=== PATIENT | female | born 1970 | race Caucasian/White ===

== ENCOUNTER 2023-09-02 07:29 | Outpatient (RCR) | payer BC, SELFPAY ==
[2023-09-02 14:20] VITALS: BP 109/68; PULSE 68; RESP 18; TEMP 36.8; O2SAT 96
--- NOTE | 2023-09-02 15:17 | PC.NURSE ---
Patient is here for prolastin infusion, education was provided. IV started in her left forearm with blood return. She denies any pain, signs, or symptoms of reaction. Patient tolerated well and denies any issues. She was discharged home.
== END 2023-09-02 16:00 | disposition home or self-care (01) ==
LOC: INF 07:29
PROVIDERS: Visit Provider Internal Medicine
DX: E88.01 Alpha-1-antitrypsin deficiency (principal)
CPT/HCPCS: 96365; J0256

== ENCOUNTER 2023-11-12 07:23 | Outpatient (RCR) | payer BC, SELFPAY ==
[2023-10-29 11:33] VITALS: BP 113/64; PULSE 68; RESP 18; TEMP 36.7; O2SAT 98
--- NOTE | 2023-10-29 11:55 | PC.NURSE ---
1125 Arrival ambulatory for prolastin infusion. Patient has been having infusion since 09/02, having first here at [facility], remaineder of them were done at home, patient developed a macular papular rashover arms, legs and trunk, scattered, had visit with PCP and pulmonology, who felt this wasnt from prolastin, but cautioned by having her return to infusion center.
[2023-10-29] MEDS: PROTEINASE INHIBITOR IV (12:08)
[2023-10-29] MEDS: ALPHA IV (12:08)
--- NOTE | 2023-10-29 12:37 | PC.NURSE ---
1135 infusion completed. tolerated well, no s/s of reaction, educated patient on s/s of reaction, and what to do to seek medical attention immediately. verbalizes understanding 1137 iv dc'd catheter intact. released ambulatory
[2023-11-05] MEDS: PROTEINASE INHIBITOR IV (11:51)
[2023-11-05] MEDS: ALPHA IV (11:51)
[2023-11-05 12:25] VITALS: BP 128/71; PULSE 67; RESP 16; TEMP 36.9; O2SAT 96
--- NOTE | 2023-11-05 12:28 | PC.NURSE ---
1130: Pt. to [facility] amb. for IV Prolastin. Weight obtained, phoned to pharmacy. Seated in recliner. VSS. #22 gauge IV initiated to right forearm on first attempt without difficulty. Flushes easily with good blood return. Pt. tolerated without c/o. 1151: IV Prolastin initiated at this time. Pt. denies needs. 1220: Prolastin completed without s&s of adverse reaction. IV d/c'd, pressure to site. 1228: Pt. d/c'd amb. to home.
[2023-11-12] MEDS: ALPHA IV (11:59)
[2023-11-12] MEDS: PROTEINASE INHIBITOR IV (11:59)
--- NOTE | 2023-11-12 12:11 | PC.NURSE ---
1159 IV prolastin initiated. Instructed to [facility] staff for any itching wheezing shortness of breath etc.
--- NOTE | 2023-11-12 12:17 | PC.NURSE ---
Patient has had no issues with any rashes hives or s/s of reaction for previous 2 infusions
== END 2023-11-18 23:59 | disposition home or self-care (01) ==
LOC: INF 07:23
PROVIDERS: Visit Provider Internal Medicine
DX: E88.01 Alpha-1-antitrypsin deficiency (principal)
CPT/HCPCS: 96365; J0256

== ENCOUNTER 2023-12-17 07:22 | Outpatient (RCR) | payer BC, SELFPAY ==
[2023-11-19 11:45] VITALS: BP 117/80; PULSE 66; RESP 18; TEMP 37; O2SAT 93
--- NOTE | 2023-11-19 11:47 | PC.NURSE ---
1130 Arrival ambulatory to chair 1, alert oriented. weight obtained 169.6 lbs, called to pharmacy 1135 #24 iv initiated rt wrist on 1st attempt, tolerated well.
[2023-11-19] MEDS: ALPHA IV (11:58)
[2023-11-19] MEDS: PROTEINASE INHIBITOR IV (11:58)
--- NOTE | 2023-11-19 12:51 | PC.NURSE ---
1215 Tolerates infusion without any problems. patient states rash has been clear for last 3-4 weeks.
[2023-11-26 11:59] VITALS: BP 135/65; PULSE 80; RESP 20; TEMP 36.8; O2SAT 98
[2023-11-26] MEDS: PROTEINASE INHIBITOR IV (12:03)
[2023-11-26] MEDS: ALPHA IV (12:03)
[2023-12-03] MEDS: PROTEINASE INHIBITOR IV (11:45)
[2023-12-03] MEDS: ALPHA IV (11:45)
[2023-12-03 11:47] VITALS: BP 146/84; PULSE 78; RESP 18; TEMP 37.2; O2SAT 96
--- NOTE | 2023-12-03 11:49 | PC.NURSE ---
1130 Arrival ambulatory, alert oriented. denies any complaints. IV initiated with #24 iv on 1st attempt, tolerated well.
--- NOTE | 2023-12-03 13:58 | PC.NURSE ---
1145 infusion initiated over 30 mins. 1200 tolerating infusion without any issues 1215 infusion completed. flushed line with normal saline. noticed patient itching rt arm iv in in doral aspect of rt wrist, inner aspect of rt forearm was sl reddened from itching, patient stated this does happen sometimes during or after infusion, she states she also has some itching on left thigh, patient stated during home infusions she had intense itching duringand after infusions, much worse than anything now. instructed if it gets any worse to go to the ER, lungs clear, denies any itching in mouth or ronny, no difficulty with breathing, when questioned further she states she has gotten this before when getting medication in our infusion center, but it was very mild like now and has never informed staff. IV dc'd catheter intact, no reddness at or immediately above IV site. 1230 no itching or rash at this time. released ambulatory.
[2023-12-09 12:55] VITALS: BP 115/76; PULSE 73; RESP 18; TEMP 36.7; O2SAT 97
--- NOTE | 2023-12-09 12:58 | PC.NURSE ---
1245 arrival ambulatory to chair 2. alert oriented, offers no complaints, states did have a little rash on lateral aspect of leg, but states its nearly gone. lungs clear throughout posteriorly.
[2023-12-09] MEDS: PROTEINASE INHIBITOR IV (13:15)
[2023-12-09] MEDS: ALPHA IV (13:15)
--- NOTE | 2023-12-09 13:45 | PC.NURSE ---
1345 tolerating infusion over 60 minutes, no itching according to patient, lungs clear.
[2023-12-17] MEDS: PROTEINASE INHIBITOR IV (12:28)
[2023-12-17] MEDS: ALPHA IV (12:28)
--- NOTE | 2023-12-17 13:43 | PC.NURSE ---
1225 Arrival ambulatory to chair 3,alert oriented, offers no complaines #24 iv initated rt wrist area on 1st attaempt, tolerated well. patient states she does continue to have some raised samira her upper thighs, this has been this wayall along, nothing new. 1305 tolerated infusion without any issues, denies itching or s/s of reaction. line flushed with NS, dc'd catheter intact site clear, cottonball secured with coban. released ambulatory
== END 2023-12-19 23:59 | disposition home or self-care (01) ==
LOC: INF 07:22
PROVIDERS: Visit Provider Internal Medicine
DX: E88.01 Alpha-1-antitrypsin deficiency (principal)
CPT/HCPCS: 96365; J0256

== ENCOUNTER 2024-01-14 07:34 | Outpatient (RCR) | payer BC, SELFPAY ==
[2023-12-23 11:45] VITALS: BP 120/62; PULSE 68; TEMP 36.7; O2SAT 96
--- NOTE | 2023-12-23 11:56 | PC.NURSE ---
1135: Pt. to [facility] amb. Weight obtained. Seated in recliner. VSS. IV started to right ac on first attempt per this RN. Flushes easily without edema or c/o pain. Pt. tolerated without c/o.
[2023-12-23] MEDS: ALPHA IV (12:06)
[2023-12-23] MEDS: PROTEINASE INHIBITOR IV (12:06)
--- NOTE | 2023-12-23 12:42 | PC.NURSE ---
1206: Prolastin infusion initiated. Given water and warm blanket 1235: Prolastin completed without s&s of adverse reaction. IV d/c'd , pressure to site. D/c'd amb. to home.
[2023-12-31] MEDS: PROTEINASE INHIBITOR IV (11:50)
[2023-12-31] MEDS: ALPHA IV (11:50)
[2023-12-31 12:15] VITALS: BP 108/76; PULSE 83; TEMP 36.3; O2SAT 96
--- NOTE | 2023-12-31 13:25 | PC.NURSE ---
1120 arrival ambulatory to chair 2, alert oriented, offers no complaints. 1130 IV initiated per Danika RN RACF#[id number]. Patient tolerated well. patient states still has rash on legs and posterior arms, Primary Care has referred her to dermatology for evaluation. 1145 IV Prolatin initiated as ordered. 1215 Infusion completed. IV dc'd catheter intact. site clear. released ambulatory
[2024-01-07] MEDS: PROTEINASE INHIBITOR IV (11:54)
[2024-01-07] MEDS: ALPHA IV (11:54)
[2024-01-07 12:05] VITALS: BP 114/61; PULSE 53; TEMP 36.7; O2SAT 93
[2024-01-14 11:36] VITALS: BP 142/89; PULSE 69; TEMP 36.4; O2SAT 94
--- NOTE | 2024-01-14 11:41 | PC.NURSE ---
1130 Arrival ambulatory to chair 1. alert oriented, @24 iv initiated rt forearm, per rrnadia rn. tolerated well.
[2024-01-14] MEDS: PROTEINASE INHIBITOR IV (12:06)
[2024-01-14] MEDS: ALPHA IV (12:06)
== END 2024-01-18 23:59 | disposition home or self-care (01) ==
LOC: INF 07:34
PROVIDERS: Visit Provider Internal Medicine
DX: E88.01 Alpha-1-antitrypsin deficiency (principal)
CPT/HCPCS: 96365; J0256

== ENCOUNTER 2024-02-18 07:27 | Outpatient (RCR) | payer BC, OTHER, SELFPAY ==
[2024-01-21] MEDS: ALPHA IV (11:52)
[2024-01-21] MEDS: PROTEINASE INHIBITOR IV (11:52)
[2024-01-21 12:45] VITALS: BP 112/68; PULSE 585; TEMP 36.5; O2SAT 92
[2024-01-28 11:38] VITALS: BP 104/62; PULSE 65; TEMP 37.1; O2SAT 98
[2024-01-28] MEDS: PROTEINASE INHIBITOR IV (11:49)
[2024-01-28] MEDS: ALPHA IV (11:49)
[2024-02-04 11:42] VITALS: BP 131/74; PULSE 73; TEMP 36.2; O2SAT 95
--- NOTE | 2024-02-04 11:47 | PC.NURSE ---
1135 Arrival ambulatory, weight obtained. pharmacy notified. Alert and oriented. offers no complaints. IV initiated rt wrist, tolerated well.
[2024-02-04] MEDS: ALPHA IV (12:03)
[2024-02-04] MEDS: PROTEINASE INHIBITOR IV (12:03)
--- NOTE | 2024-02-04 13:01 | PC.NURSE ---
1203 prolastin infused. IV dc'd catheter intact. cottonball applied secured with coban. released ambulatory
[2024-02-11 11:14] VITALS: BP 131/74; PULSE 65; TEMP 37.4; O2SAT 95
[2024-02-11] MEDS: PROTEINASE INHIBITOR IV (11:44)
[2024-02-11] MEDS: ALPHA IV (11:44)
--- NOTE | 2024-02-11 12:27 | PC.NURSE ---
1114: Pt. to [facility] for weekly infusion. Weight obtained, called to pharmacy. Seated in recliner. VSS. IV initiated, see documentation. Pt. tolerated without c/o. 1144: IV Prolastin initiated at this time. Denies needs. 1215: Prolastin completed without adverse reaction. IV d/c'd, pressure to site. D/c'd amb. to home.
[2024-02-18 11:35] VITALS: BP 117/70; PULSE 69; TEMP 36.1; O2SAT 979
--- NOTE | 2024-02-18 11:39 | PC.NURSE ---
1130 Arrival ambulatory to chair 1. alert and oriented. IV initated per RRnadia RN, patient tolerated well
[2024-02-18] MEDS: PROTEINASE INHIBITOR IV (11:53)
[2024-02-18] MEDS: ALPHA IV (11:53)
--- NOTE | 2024-02-18 12:23 | PC.NURSE ---
infusion completed, tolerated well. IV dc'd, see documentation, tamra applied. Released ambulatory
== END 2024-02-18 23:59 | disposition home or self-care (01) ==
LOC: INF 07:27
PROVIDERS: Visit Provider Internal Medicine
DX: E88.01 Alpha-1-antitrypsin deficiency (principal)
CPT/HCPCS: 96365; J0256

== ENCOUNTER 2024-03-17 07:31 | Outpatient (RCR) | payer BC, OTHER, SELFPAY ==
[2024-02-25 11:45] VITALS: BP 135/82; PULSE 72; TEMP 36.9; O2SAT 93
[2024-02-25] MEDS: ALPHA IV (12:02)
[2024-02-25] MEDS: PROTEINASE INHIBITOR IV (12:02)
[2024-03-03 10:25] VITALS: BP 115/61; PULSE 57; TEMP 37; O2SAT 96
--- NOTE | 2024-03-03 10:44 | PC.NURSE ---
1025: Pt. to [facility] amb. Weight obtained, called to pharmacy. Seated in recliner. VSS. #24 gauge IV initiated to right hand on first attempt per. this RN. Flushes easily without redness or edema. Pt. tolerated without c/o. Pt. given water. Declines snack when offered.
[2024-03-03] MEDS: ALPHA IV (10:51)
[2024-03-03] MEDS: PROTEINASE INHIBITOR IV (10:51)
--- NOTE | 2024-03-03 10:55 | PC.NURSE ---
1051: IV Prolastin initiated at this time. Pt. denies needs.
--- NOTE | 2024-03-03 11:33 | PC.NURSE ---
1125: Prolastin infused without s&s of adverse reaction. IV d/c'd, pressure to site. Pt. d/c'd amb. to home.
[2024-03-10 11:41] VITALS: BP 121/73; PULSE 65; TEMP 37; O2SAT 92
--- NOTE | 2024-03-10 11:44 | PC.NURSE ---
1130 Arrival ambulatory to chair 1. alert oriented. IV initiated rt hand per ky hillman rn. see documentation
[2024-03-10] MEDS: ALPHA IV (11:59)
[2024-03-10] MEDS: PROTEINASE INHIBITOR IV (11:59)
[2024-03-17 11:40] VITALS: BP 103/57; PULSE 69; TEMP 37.1; O2SAT 96
[2024-03-17] MEDS: PROTEINASE INHIBITOR IV (12:00)
[2024-03-17] MEDS: ALPHA IV (12:00)
== END 2024-03-19 23:59 | disposition home or self-care (01) ==
LOC: INF 07:31
DX: E88.01 Alpha-1-antitrypsin deficiency (principal)
CPT/HCPCS: 96365; J0256

== ENCOUNTER 2024-04-19 07:19 | Outpatient (RCR) | payer BC, OTHER, SELFPAY ==
[2024-03-24] MEDS: PROTEINASE INHIBITOR IV (11:55)
[2024-03-24] MEDS: ALPHA IV (11:55)
[2024-03-24 12:00] VITALS: BP 117/75; PULSE 69; TEMP 37; O2SAT 95
[2024-03-31 11:36] VITALS: BP 127/66; PULSE 63; TEMP 36.6; O2SAT 93
[2024-03-31] MEDS: ALPHA IV (12:07)
[2024-03-31] MEDS: PROTEINASE INHIBITOR IV (12:07)
[2024-04-07] MEDS: PROTEINASE INHIBITOR IV (11:25)
[2024-04-07] MEDS: ALPHA IV (11:25)
[2024-04-07 11:39] VITALS: BP 116/77; PULSE 65; TEMP 36.6; O2SAT 94
[2024-04-12 11:36] VITALS: BP 125/77; PULSE 64; TEMP 37.1; O2SAT 94
[2024-04-12] MEDS: ALPHA IV (11:59)
[2024-04-12] MEDS: PROTEINASE INHIBITOR IV (11:59)
[2024-04-19 11:43] VITALS: BP 103/70; PULSE 78; TEMP 36.1; O2SAT 93
[2024-04-19] MEDS: ALPHA IV (11:49)
[2024-04-19] MEDS: PROTEINASE INHIBITOR IV (11:49)
== END 2024-04-19 23:59 | disposition home or self-care (01) ==
LOC: INF 07:19
PROVIDERS: Visit Provider Internal Medicine
DX: E88.01 Alpha-1-antitrypsin deficiency (principal)
CPT/HCPCS: 36569; 96365; J0256

== ENCOUNTER 2024-05-17 07:27 | Outpatient (RCR) | payer BC, OTHER, SELFPAY ==
[2024-04-20 00:03] VITALS: BP 103/70; PULSE 78; TEMP 36.1; O2SAT 93
[2024-04-26] MEDS: PROTEINASE INHIBITOR IV (11:50)
[2024-04-26] MEDS: ALPHA IV (11:50)
[2024-04-26 11:57] VITALS: BP 112/59; PULSE 60; O2SAT 96
[2024-05-03 12:00] VITALS: BP 123/77; PULSE 66; TEMP 37; O2SAT 96
[2024-05-03] MEDS: PROTEINASE INHIBITOR IV (12:23)
[2024-05-03] MEDS: ALPHA IV (12:23)
--- NOTE | 2024-05-03 12:44 | PC.NURSE ---
1200: Pt. to [facility] amb. for weekly infusion. Weight obtained and called to pharmacy. Seated in recliner. VSS. IV initiated, see documentation. Pt. tolerated without c/o. IV Prolastin initiated.
--- NOTE | 2024-05-03 12:53 | PC.NURSE ---
1252: Infusion complete without adverse reaction. IV d/c'd, pressure to site. D/c'd amb. to home.
[2024-05-10 11:45] VITALS: BP 106/63; PULSE 63; TEMP 37; O2SAT 97
[2024-05-10] MEDS: ALPHA IV (11:55)
[2024-05-10] MEDS: PROTEINASE INHIBITOR IV (11:55)
[2024-05-10 12:16] VITALS: BP 111/75; PULSE 67; TEMP 36.9; O2SAT 100
[2024-05-17 11:37] VITALS: BP 109/73; PULSE 57; TEMP 36.6; O2SAT 96
[2024-05-17] MEDS: ALPHA IV (11:52)
[2024-05-17] MEDS: PROTEINASE INHIBITOR IV (11:52)
== END 2024-05-20 23:59 | disposition home or self-care (01) ==
LOC: INF 07:27
PROVIDERS: Visit Provider Internal Medicine
DX: E88.01 Alpha-1-antitrypsin deficiency (principal)
CPT/HCPCS: 96365; J0256

== ENCOUNTER 2024-05-31 09:02 | Outpatient (OUT) | payer BC, OTHER, SELFPAY ==
--- NOTE | 2024-05-31 09:00 | RT_ITS ---
[facility] Test Date: 2024-05-31 Pat Name: SAMSON WEBB Department: Room: - Gender: Female Print Designer: Hanny Baez RRT : 1970 Requested By: Arvind Alvarado Order Number: [id number] Reading MD: Arvind Alvarado Interpretive Statements Pulmonary function testing was completed according to ATS criteria. Findings were considered accurate and reproducible. Both pre- and post-bronchodilator values utilized for spirometry. Spirometry (based on pre-bronchodilator values): -FEV1/FVC: Normal @ 77% -FEV1: Normal @ 106% -FVC: Normal @ 108% -There is a partial bronchodilator response in FEV1 which meets >200mL increase but <12% change. Lung volumes by plethysmography (based on pre-bronchodilator values): -RV: Increased @ 135% -TLC: Increased @ 123% Diffusion capacity: -DLCO: Normal @ 83% when corrected for Hb 13g/dL Comparison from 01/15/2022: -FEV1: 105% -T% -DLCO: 73% Impression: -Normal spirometry. An elevated RV and TLC suggest air trapping and hyperinflation respectively. The diffusion capacity is normal. Study is technically normal. Compared to prior study, there may be development of air trapping/inflation but diffusion impairment has improved. Clinical correlation required. Electronically Signed On 05-31-2024 12:55:10 EDT by Arvind Alvarado
--- NOTE | 2024-05-31 10:27 | XR_ITS ---
The [address] [address] Patient Name: SAMSON WEBB MRN: [id number] date: 1970 Sex: F Assigned Patient Location: CARD Current Patient Location: CARD Accession/Order Number: [id number] Exam Date: 05/31/2024 10:30 Report Date: 06/01/2024 09:16 At the request of: HELIO SAVAGE Procedure: XR chest 2V PROCEDURE: XR chest 2V DATE: 05/31/2024 9:30 AM CDT COMPARISONS: Chest CT from 01/21/2023. Chest x-ray from 12/17/2022 CLINICAL INDICATION: 53 years Female Emphysema FINDINGS: The cardiomediastinal silhouette and pulmonary vasculature are within normal limits. The lungs are clear. There is no evidence of pleural effusion or pneumothorax. XR/XR chest 2V IMPRESSION: Chest radiograph is within normal limits. No definite evidence of chronic lung changes on today's exam. Electronically authenticated by: KRISTIN GOODMAN Date: 06/01/2024 09:16
[2024-05-31] MEDS: ALBUTEROL SULFATE 2.5 MG/3 ML VIAL NEB IH (12:57)
== END 2024-05-31 09:03 | disposition home or self-care (01) ==
LOC: CARD 09:02
PROVIDERS: Visit Provider Internal Medicine
DX: J43.8 Other emphysema (principal)
CPT/HCPCS: 36415; 71046; 85018; 94060; 94726; 94729

== ENCOUNTER 2024-06-14 07:36 | Outpatient (RCR) | payer BC, OTHER, SELFPAY ==
[2024-05-21 00:04] VITALS: BP 103/70; PULSE 78; TEMP 36.1; O2SAT 93
[2024-05-25 11:42] VITALS: BP 121/63; PULSE 65; TEMP 36.4; O2SAT 98
[2024-05-25] MEDS: PROTEINASE INHIBITOR IV (12:03)
[2024-05-25] MEDS: ALPHA IV (12:03)
--- NOTE | 2024-05-25 12:06 | PC.NURSE ---
1142: Pt. to [facility] amb. for weekly Prolastin infusion. Weight obtained. Seated in recliner. VSS. IV initiated on second attempt, see documentation. Pt. tolerated with min. c/o. 1203: IV Prolastin initiated at this time. Lunch tray provided.
--- NOTE | 2024-05-25 12:52 | PC.NURSE ---
1235: Prolastin infusion completed at this time. Pt. without c/o. IV d/c'd, pressure to site. D/c'd amb. to home.
[2024-05-31 10:40] VITALS: BP 116/76; PULSE 64; TEMP 36.8; O2SAT 97
[2024-05-31] MEDS: PROTEINASE INHIBITOR IV (11:05)
[2024-05-31] MEDS: ALPHA IV (11:05)
--- NOTE | 2024-05-31 11:08 | PC.NURSE ---
1040: Pt. to [facility] amb. for weekly infusion. Weight obtained. Seated in recliner. VSS. IV initiated, see documentation. Pt. tolerated without c/o. Denies needs or c/o. Lunch tray ordered. 1105: IV Prolastin initiated at this time. Lunch tray provided.
--- NOTE | 2024-05-31 11:45 | PC.NURSE ---
1135: Prolastin infusion complete. Pt. tolerated without c/o. IV d/c'd pressure to site. D/c'd amb. to home.
[2024-06-07 11:28] VITALS: BP 106/63; PULSE 68; TEMP 36.3; O2SAT 96
[2024-06-07] MEDS: PROTEINASE INHIBITOR IV (11:56)
[2024-06-07] MEDS: ALPHA IV (11:56)
[2024-06-14 11:26] VITALS: BP 121/81; PULSE 76; TEMP 36.4; O2SAT 96
[2024-06-14] MEDS: PROTEINASE INHIBITOR IV (11:46)
[2024-06-14] MEDS: ALPHA IV (11:46)
[2024-06-21 11:48] VITALS: BP 108/71; PULSE 74; TEMP 36.4; O2SAT 96
== END 2024-06-19 23:59 | disposition home or self-care (01) ==
LOC: INF 07:36
PROVIDERS: Visit Provider Internal Medicine
DX: J43.8 Other emphysema (principal); E88.01 Alpha-1-antitrypsin deficiency
CPT/HCPCS: 36415; 71046; 85018; 94060; 94726; 94729; 96365; J0256

== ENCOUNTER 2024-07-19 07:35 | Outpatient (RCR) | payer BC, OTHER, SELFPAY ==
[2024-06-20 00:09] VITALS: BP 103/70; PULSE 78; TEMP 36.1; O2SAT 93
[2024-06-21] MEDS: PROTEINASE INHIBITOR IV (12:19)
[2024-06-21] MEDS: ALPHA IV (12:19)
[2024-06-28 11:34] VITALS: BP 104/69; PULSE 64; TEMP 37.1; O2SAT 95
[2024-06-28] MEDS: ALPHA IV (12:14)
[2024-06-28] MEDS: PROTEINASE INHIBITOR IV (12:14)
[2024-07-05 11:30] VITALS: BP 98/59; PULSE 67; TEMP 37.3; O2SAT 97
--- NOTE | 2024-07-05 11:49 | PC.NURSE ---
1130: Pt. to [facility] amb. for weekly infusion. Weight obtained. Seated in recliner. VSS. IV initiated, see documentation. Pt tolerated without c/o. Offered snack, pt. declines. Eating snack from home. Pt. without needs or c/o.
[2024-07-05] MEDS: ALPHA IV (11:56)
[2024-07-05] MEDS: PROTEINASE INHIBITOR IV (11:56)
--- NOTE | 2024-07-05 12:28 | PC.NURSE ---
1156: IV Prolastin initiated. Pt. denies needs. 1123: Prolastin infusion completed without adverse reactions. IV d/c'd, pressure to site. D/c'd amb. to home.
--- NOTE | 2024-07-05 12:29 | PC.NURSE ---
1156: IV Prolastin infusion initiated. Pt. denies needs or c/o. 1223: Prolastin completed without s&s of adverse reactions. IV d/c'd, pressure to site. D/c'd amb. to home.
[2024-07-12 11:25] VITALS: BP 119/60; PULSE 68; TEMP 36.6; O2SAT 96
[2024-07-12] MEDS: ALPHA IV (11:48)
[2024-07-12] MEDS: PROTEINASE INHIBITOR IV (11:48)
[2024-07-19] MEDS: PROTEINASE INHIBITOR IV (12:02)
[2024-07-19] MEDS: ALPHA IV (12:02)
[2024-07-19 12:04] VITALS: BP 117/55; PULSE 66; TEMP 36.4; O2SAT 97
== END 2024-07-20 23:59 | disposition home or self-care (01) ==
LOC: INF 07:35
PROVIDERS: Visit Provider Internal Medicine
DX: J43.8 Other emphysema (principal); E88.01 Alpha-1-antitrypsin deficiency
CPT/HCPCS: 96365; J0256

== ENCOUNTER 2024-08-16 07:39 | Outpatient (RCR) | payer BC, OTHER, SELFPAY ==
[2024-07-21 00:07] VITALS: BP 103/70; PULSE 78; TEMP 36.1; O2SAT 93
[2024-07-26] MEDS: ALPHA IV (15:44)
[2024-07-26] MEDS: PROTEINASE INHIBITOR IV (15:44)
[2024-07-26 16:10] VITALS: BP 102/70; PULSE 63; TEMP 36.9; O2SAT 97
--- NOTE | 2024-07-26 16:12 | PC.NURSE ---
1515: Pt. to [facility] amb. Weight obtained. Seated in recliner. VSS. #22 gauge IV initiated to right forearm on first attempt without difficulty. Flushes easily. Pt. tolerated without c/o. 1554: Prolastin infusion initiated at this time. Pt. denies needs 1609: Prolastin completed without s&s of adverse reaction. IV d/c'd pressure to site. D/c'd amb. to home.
[2024-08-02 11:35] VITALS: BP 126/61; PULSE 68; TEMP 36.3; O2SAT 96
[2024-08-02] MEDS: PROTEINASE INHIBITOR IV (12:12)
[2024-08-02] MEDS: ALPHA IV (12:12)
--- NOTE | 2024-08-02 12:19 | PC.NURSE ---
1135: Pt. to [facility] amb for weekly infusion. Wt.obtained. Called to pharmacy. VSS. IV initiated,see documentation. Lunch ordered.
--- NOTE | 2024-08-02 13:04 | PC.NURSE ---
1242: IV Prolasitn infused without s&s of adverse reaction. IV d/c'd, pressure to site. Tolerated without c/o. D/c'd amb. to home.
[2024-08-09 11:32] VITALS: BP 138/72; PULSE 68; TEMP 36.3; O2SAT 95
[2024-08-09] MEDS: PROTEINASE INHIBITOR IV (11:58)
[2024-08-09] MEDS: ALPHA IV (11:58)
--- NOTE | 2024-08-09 12:02 | PC.NURSE ---
1132: Pt. to [facility] amb. for weekly infusion. Weight obtained. Seated in recliner. VSS. Denies changes in overall status or medication. IV initiated to left hand using 22 gauge on first attempt without difficulty. Flushes easily without redness or edema. Pt. tolerates without c/o. Given bottled water. Denies needs.
--- NOTE | 2024-08-09 12:28 | PC.NURSE ---
1225: Prolastin completed without s&s of adverse reaction. IV d/c'd, pressure to site. D/c'd amb. to home.
[2024-08-16 11:42] VITALS: BP 113/73; PULSE 78; TEMP 36.6; O2SAT 94
[2024-08-16] MEDS: ALPHA IV (12:10)
[2024-08-16] MEDS: PROTEINASE INHIBITOR IV (12:10)
--- NOTE | 2024-08-16 13:02 | PC.NURSE ---
Pt here for Prolastin. IV started in lt FA. Infusion complete w/o incident. Pt d/c'd in stable condition.
== END 2024-08-16 13:30 | disposition home or self-care (01) ==
LOC: INF 07:39
PROVIDERS: Visit Provider Internal Medicine
DX: J43.9 Emphysema, unspecified (principal); E88.01 Alpha-1-antitrypsin deficiency
CPT/HCPCS: 96365; J0256

== ENCOUNTER 2024-09-14 07:42 | Outpatient (RCR) | payer BC, OTHER, SELFPAY ==
[2024-08-23] MEDS: PROTEINASE INHIBITOR IV (11:47)
[2024-08-23] MEDS: ALPHA IV (11:47)
[2024-08-23 12:00] VITALS: BP 107/71; PULSE 59; TEMP 36.7
[2024-08-30] MEDS: ALPHA IV (12:10)
[2024-08-30] MEDS: PROTEINASE INHIBITOR IV (12:10)
[2024-08-30 13:23] VITALS: BP 117/69; PULSE 64; TEMP 36.4; O2SAT 96
[2024-09-06 11:42] VITALS: BP 113/64; PULSE 88; TEMP 36.4; O2SAT 95
[2024-09-06] MEDS: PROTEINASE INHIBITOR IV (12:01)
[2024-09-06] MEDS: ALPHA IV (12:01)
[2024-09-14 11:40] VITALS: BP 119/66; PULSE 68; TEMP 36.8; O2SAT 96
[2024-09-14] MEDS: ALPHA IV (12:12)
[2024-09-14] MEDS: PROTEINASE INHIBITOR IV (12:12)
== END 2024-09-15 12:32 | disposition home or self-care (01) ==
LOC: INF 07:42
PROVIDERS: Visit Provider Internal Medicine
DX: E88.01 Alpha-1-antitrypsin deficiency (principal)
CPT/HCPCS: 96365; 96366; J0256

== ENCOUNTER 2024-10-18 07:37 | Outpatient (RCR) | payer BC, OTHER, SELFPAY ==
[2024-09-21 11:30] VITALS: BP 124/82; PULSE 64; TEMP 36.4; O2SAT 95
[2024-09-21] MEDS: ALPHA IV (11:58)
[2024-09-21] MEDS: PROTEINASE INHIBITOR IV (11:58)
[2024-09-27 11:35] VITALS: BP 113/65; PULSE 98; TEMP 36; O2SAT 96
[2024-09-27] MEDS: PROTEINASE INHIBITOR IV (12:01)
[2024-09-27] MEDS: ALPHA IV (12:01)
--- NOTE | 2024-09-27 12:13 | PC.NURSE ---
1135:Pt. to [facility] amb. for weekly Prolastin infusion. Weight obtained. Seated in cnc machine operator. VSS. IV initiated as documented. Given water. Declines snack or food. 1201: IV Prolastin initiated at this time. Denies needs.
[2024-10-04 11:31] VITALS: BP 109/57; PULSE 67; TEMP 35.5; O2SAT 98
[2024-10-04] MEDS: ALPHA IV (11:49)
[2024-10-04] MEDS: PROTEINASE INHIBITOR IV (11:49)
[2024-10-11 11:41] VITALS: BP 111/68; PULSE 66; TEMP 36.4; O2SAT 96
[2024-10-11] MEDS: PROTEINASE INHIBITOR IV (11:47)
[2024-10-11] MEDS: ALPHA IV (11:47)
[2024-10-18 11:30] VITALS: BP 121/77; PULSE 64; TEMP 36.3; O2SAT 96
[2024-10-18] MEDS: PROTEINASE INHIBITOR IV (11:56)
[2024-10-18] MEDS: ALPHA IV (11:56)
== END 2024-10-20 23:59 | disposition home or self-care (01) ==
LOC: INF 07:37
PROVIDERS: Visit Provider Internal Medicine
DX: E88.01 Alpha-1-antitrypsin deficiency (principal)
CPT/HCPCS: 96365; J0256

== ENCOUNTER 2024-11-15 07:37 | Outpatient (RCR) | payer BC, OTHER, SELFPAY ==
[2024-10-27 11:33] VITALS: BP 114/77; PULSE 70; TEMP 36.6; O2SAT 98
[2024-10-27] MEDS: ALPHA IV (11:52)
[2024-10-27] MEDS: PROTEINASE INHIBITOR IV (11:52)
[2024-11-01 11:28] VITALS: BP 117/76; PULSE 62; TEMP 36.4; O2SAT 96
[2024-11-01] MEDS: ALPHA IV (11:55)
[2024-11-01] MEDS: PROTEINASE INHIBITOR IV (11:55)
[2024-11-08 11:30] VITALS: BP 123/75; PULSE 61; TEMP 36.9; O2SAT 94
[2024-11-08] MEDS: PROTEINASE INHIBITOR IV (11:54)
[2024-11-08] MEDS: ALPHA IV (11:54)
[2024-11-15 11:29] VITALS: BP 106/69; PULSE 88; TEMP 36.6; O2SAT 94
[2024-11-15] MEDS: ALPHA IV (12:00)
[2024-11-15] MEDS: PROTEINASE INHIBITOR IV (12:00)
== END 2024-11-15 13:19 | disposition home or self-care (01) ==
LOC: INF 07:37
PROVIDERS: Visit Provider Internal Medicine
DX: E88.01 Alpha-1-antitrypsin deficiency (principal)
CPT/HCPCS: 96365; J0256

== ENCOUNTER 2024-12-13 07:32 | Outpatient (RCR) | payer BC, OTHER, SELFPAY ==
[2024-11-22 11:19] VITALS: BP 119/76; PULSE 65; TEMP 36.6; O2SAT 96
[2024-11-29 11:33] VITALS: BP 105/54; PULSE 71; TEMP 36.5; O2SAT 97
[2024-11-29] MEDS: PROTEINASE INHIBITOR IV (11:58)
[2024-11-29] MEDS: ALPHA IV (11:58)
[2024-12-06 11:27] VITALS: BP 110/64; PULSE 67; TEMP 36.5; O2SAT 94
[2024-12-06] MEDS: PROTEINASE INHIBITOR IV (12:07)
[2024-12-06] MEDS: ALPHA IV (12:07)
[2024-12-13 11:38] VITALS: BP 111/75; PULSE 59; TEMP 36.9; O2SAT 95
== END 2024-12-13 13:10 | disposition home or self-care (01) ==
LOC: INF 07:32
PROVIDERS: Visit Provider Internal Medicine
DX: E88.01 Alpha-1-antitrypsin deficiency (principal)
CPT/HCPCS: 96365; J0256

== ENCOUNTER 2025-01-10 07:41 | Outpatient (RCR) | payer BC, OTHER, SELFPAY ==
[2024-12-22 11:48] VITALS: BP 109/73; PULSE 63; TEMP 36.7; O2SAT 93
[2024-12-22] MEDS: PROTEINASE INHIBITOR IV (12:16)
[2024-12-22] MEDS: ALPHA IV (12:16)
[2024-12-27 11:28] VITALS: BP 115/62; PULSE 65; TEMP 36.4; O2SAT 95
[2024-12-27] MEDS: PROTEINASE INHIBITOR IV (11:45)
[2024-12-27] MEDS: ALPHA IV (11:45)
[2025-01-03 11:27] VITALS: BP 117/62; PULSE 70; TEMP 36.6; O2SAT 96
[2025-01-03] MEDS: ALPHA IV (11:47)
[2025-01-03] MEDS: PROTEINASE INHIBITOR IV (11:47)
[2025-01-10 11:25] VITALS: BP 116/75; PULSE 63; TEMP 36.6; O2SAT 95
[2025-01-10] MEDS: ALPHA IV (11:41)
[2025-01-10] MEDS: PROTEINASE INHIBITOR IV (11:41)
== END 2025-01-17 23:59 | disposition home or self-care (01) ==
LOC: INF 07:41
PROVIDERS: Visit Provider Internal Medicine
DX: E88.01 Alpha-1-antitrypsin deficiency (principal)
CPT/HCPCS: 96365; J0256

== ENCOUNTER 2025-02-15 07:26 | Outpatient (RCR) | payer BC, OTHER, SELFPAY ==
[2025-01-19 11:31] VITALS: BP 115/66; PULSE 74; TEMP 36.6; O2SAT 92
[2025-01-19] MEDS: ALPHA IV (12:22)
[2025-01-19] MEDS: PROTEINASE INHIBITOR IV (12:22)
[2025-01-24 11:36] VITALS: BP 107/75; PULSE 71; TEMP 36.9; O2SAT 93
[2025-01-24] MEDS: PROTEINASE INHIBITOR IV (11:59)
[2025-01-24] MEDS: ALPHA IV (11:59)
[2025-02-01 09:04] VITALS: BP 102/71; PULSE 63; TEMP 36.6; O2SAT 94
[2025-02-01] MEDS: ALPHA IV (09:24)
[2025-02-01] MEDS: PROTEINASE INHIBITOR IV (09:24)
[2025-02-08 09:30] VITALS: BP 107/60; PULSE 61; TEMP 37.6; O2SAT 93
[2025-02-08] MEDS: PROTEINASE INHIBITOR IV (09:53)
[2025-02-08] MEDS: ALPHA IV (09:53)
[2025-02-15 09:29] VITALS: BP 108/73; PULSE 56; TEMP 36.6; O2SAT 94
[2025-02-15] MEDS: ALPHA IV (09:46)
[2025-02-15] MEDS: PROTEINASE INHIBITOR IV (09:46)
== END 2025-02-17 23:59 | disposition home or self-care (01) ==
LOC: INF 07:26
PROVIDERS: Visit Provider Internal Medicine
DX: E88.01 Alpha-1-antitrypsin deficiency (principal)
CPT/HCPCS: 96365; J0256

== ENCOUNTER 2025-03-14 10:35 | Outpatient (RCR) | payer BC, OTHER, SELFPAY ==
[2025-02-21 11:36] VITALS: BP 121/64; PULSE 65; TEMP 36.4; O2SAT 95
[2025-02-21] MEDS: ALPHA IV (11:53)
[2025-02-21] MEDS: PROTEINASE INHIBITOR IV (11:53)
[2025-02-28 11:27] VITALS: BP 128/68; PULSE 63; TEMP 36; O2SAT 95
[2025-02-28] MEDS: ALPHA IV (11:49)
[2025-02-28] MEDS: PROTEINASE INHIBITOR IV (11:49)
[2025-03-07 11:49] VITALS: BP 120/80; PULSE 66; TEMP 36.3; O2SAT 93
[2025-03-07] MEDS: ALPHA IV (12:01)
[2025-03-07] MEDS: PROTEINASE INHIBITOR IV (12:01)
[2025-03-14 11:48] VITALS: BP 122/80; PULSE 67; TEMP 36.6; O2SAT 95
[2025-03-14] MEDS: ALPHA IV (11:56)
[2025-03-14] MEDS: PROTEINASE INHIBITOR IV (11:56)
== END 2025-03-19 23:59 | disposition home or self-care (01) ==
LOC: INF 10:35
PROVIDERS: Visit Provider Internal Medicine
DX: E88.01 Alpha-1-antitrypsin deficiency (principal)
CPT/HCPCS: 96365; J0256

== ENCOUNTER 2025-04-18 07:28 | Outpatient (RCR) | payer BC, OTHER, SELFPAY ==
[2025-03-21 11:27] VITALS: BP 109/65; PULSE 64; TEMP 36.4; O2SAT 95
[2025-03-21] MEDS: PROTEINASE INHIBITOR IV (11:52)
[2025-03-21] MEDS: ALPHA IV (11:52)
--- NOTE | 2025-03-21 11:53 | PC.NURSE ---
IV Prolastin initiated at this time.
[2025-03-28 11:36] VITALS: BP 107/61; PULSE 60; TEMP 36.7; O2SAT 91
[2025-03-28] MEDS: PROTEINASE INHIBITOR IV (11:52)
[2025-03-28] MEDS: ALPHA IV (11:52)
[2025-04-04 11:30] VITALS: BP 126/86; PULSE 57; TEMP 36.8; O2SAT 97
[2025-04-04] MEDS: PROTEINASE INHIBITOR IV (11:43)
[2025-04-04] MEDS: ALPHA IV (11:43)
[2025-04-11 11:31] VITALS: BP 103/55; PULSE 79; TEMP 36.8; O2SAT 94
[2025-04-11] MEDS: PROTEINASE INHIBITOR IV (11:46)
[2025-04-11] MEDS: ALPHA IV (11:46)
[2025-04-18 11:31] VITALS: BP 114/54; PULSE 65; TEMP 36.6; O2SAT 95
[2025-04-18] MEDS: ALPHA IV (11:48)
[2025-04-18] MEDS: PROTEINASE INHIBITOR IV (11:48)
== END 2025-04-19 23:59 | disposition home or self-care (01) ==
LOC: INF 07:28
PROVIDERS: Visit Provider Internal Medicine
DX: E88.01 Alpha-1-antitrypsin deficiency (principal)
CPT/HCPCS: 96365; J0256

== ENCOUNTER 2025-05-16 11:32 | Outpatient (RCR) | payer BC, OTHER, SELFPAY ==
[2025-04-25 11:30] VITALS: BP 118/73; PULSE 65; TEMP 36.6; O2SAT 96
[2025-04-25] MEDS: ALPHA IV (11:57)
[2025-04-25] MEDS: PROTEINASE INHIBITOR IV (11:57)
[2025-05-02 11:32] VITALS: BP 122/81; PULSE 58; TEMP 37.3; O2SAT 98
[2025-05-02] MEDS: PROTEINASE INHIBITOR IV (11:56)
[2025-05-02] MEDS: ALPHA IV (11:56)
[2025-05-09 11:33] VITALS: BP 120/82; PULSE 60; TEMP 36.3; O2SAT 98
[2025-05-09] MEDS: ALPHA IV (11:52)
[2025-05-09] MEDS: PROTEINASE INHIBITOR IV (11:52)
[2025-05-16 11:34] VITALS: BP 130/74; PULSE 69; TEMP 36.4; O2SAT 92
[2025-05-16] MEDS: ALPHA IV (11:57)
[2025-05-16] MEDS: PROTEINASE INHIBITOR IV (11:57)
== END 2025-05-20 23:59 | disposition home or self-care (01) ==
LOC: INF 11:32
PROVIDERS: Visit Provider Internal Medicine
DX: E88.01 Alpha-1-antitrypsin deficiency (principal)
CPT/HCPCS: 96365; J0256

== ENCOUNTER 2025-06-13 11:32 | Outpatient (RCR) | payer BC, OTHER, SELFPAY ==
[2025-05-23 11:35] VITALS: BP 100/69; PULSE 71; TEMP 36.4; O2SAT 94
[2025-05-23] MEDS: PROTEINASE INHIBITOR IV (11:50)
[2025-05-23] MEDS: ALPHA IV (11:50)
[2025-05-30 11:28] VITALS: BP 127/78; PULSE 67; TEMP 36.1; O2SAT 97
[2025-05-30] MEDS: PROTEINASE INHIBITOR IV (11:50)
[2025-05-30] MEDS: ALPHA IV (11:50)
[2025-06-06 11:27] VITALS: BP 113/75; PULSE 60; TEMP 36.7; O2SAT 92
[2025-06-06] MEDS: PROTEINASE INHIBITOR IV (11:39)
[2025-06-06] MEDS: ALPHA IV (11:39)
[2025-06-13 11:39] VITALS: BP 111/69; PULSE 63; TEMP 36.2; O2SAT 96
[2025-06-13] MEDS: ALPHA IV (11:57)
[2025-06-13] MEDS: PROTEINASE INHIBITOR IV (11:57)
== END 2025-06-19 23:59 | disposition home or self-care (01) ==
LOC: INF 11:32
PROVIDERS: Visit Provider Internal Medicine
DX: E88.01 Alpha-1-antitrypsin deficiency (principal)
CPT/HCPCS: 96365; J0256

== ENCOUNTER 2025-07-18 11:37 | Outpatient (RCR) | payer BC, OTHER, SELFPAY ==
[2025-06-20 11:37] VITALS: BP 128/77; PULSE 63; TEMP 37; O2SAT 94
[2025-06-20] MEDS: ALPHA IV (11:56)
[2025-06-20] MEDS: PROTEINASE INHIBITOR IV (11:56)
[2025-06-27 11:33] VITALS: BP 112/70; PULSE 64; TEMP 36.2; O2SAT 98
[2025-06-27] MEDS: PROTEINASE INHIBITOR IV (11:58)
[2025-06-27] MEDS: ALPHA IV (11:58)
[2025-07-04 11:32] VITALS: BP 126/64; PULSE 60; TEMP 37; O2SAT 96
[2025-07-04] MEDS: PROTEINASE INHIBITOR IV (11:44)
[2025-07-04] MEDS: ALPHA IV (11:44)
[2025-07-11 11:25] VITALS: BP 125/80; PULSE 63; TEMP 36.7; O2SAT 96
[2025-07-11] MEDS: ALPHA IV (11:49)
[2025-07-11] MEDS: PROTEINASE INHIBITOR IV (11:49)
[2025-07-18 11:43] VITALS: BP 112/75; PULSE 63; TEMP 36.4; O2SAT 97
[2025-07-18] MEDS: ALPHA IV (12:07)
[2025-07-18] MEDS: PROTEINASE INHIBITOR IV (12:07)
== END 2025-07-20 23:59 | disposition home or self-care (01) ==
LOC: INF 11:37
PROVIDERS: Visit Provider Internal Medicine
DX: E88.01 Alpha-1-antitrypsin deficiency (principal)
CPT/HCPCS: 96365; J0256

== ENCOUNTER 2025-08-15 11:30 | Outpatient (RCR) | payer BC, OTHER, SELFPAY ==
[2025-07-25 11:25] VITALS: BP 118/74; PULSE 69; TEMP 35.9; O2SAT 97
[2025-07-25] MEDS: ALPHA IV (11:43)
[2025-07-25] MEDS: PROTEINASE INHIBITOR IV (11:43)
[2025-08-01 11:25] VITALS: BP 115/79; PULSE 67; TEMP 36.9; O2SAT 95
[2025-08-08 11:30] VITALS: BP 127/80; PULSE 61; TEMP 36.7; O2SAT 94
[2025-08-15 11:32] VITALS: BP 117/57; PULSE 61; TEMP 37.2; O2SAT 95
== END 2025-08-19 23:59 | disposition home or self-care (01) ==
LOC: INF 11:30
PROVIDERS: Visit Provider Internal Medicine
DX: E88.01 Alpha-1-antitrypsin deficiency (principal)
CPT/HCPCS: 96365; J0256

== ENCOUNTER 2025-09-19 08:59 | Outpatient (RCR) | payer BC, OTHER, SELFPAY ==
[2025-08-29 11:23] VITALS: BP 118/71; PULSE 65; TEMP 36.6; O2SAT 97
[2025-09-05 11:35] VITALS: BP 103/63; PULSE 65; TEMP 36.8; O2SAT 98
[2025-09-11 11:36] VITALS: BP 126/79; PULSE 70; TEMP 36.6; O2SAT 96
[2025-09-19 11:30] VITALS: BP 126/81; PULSE 66; TEMP 36.5; O2SAT 95
== END 2025-09-19 23:59 | disposition home or self-care (01) ==
LOC: INF 08:59
PROVIDERS: Visit Provider Internal Medicine
DX: E88.01 Alpha-1-antitrypsin deficiency (principal)
CPT/HCPCS: 96365; J0256